=== PATIENT | female | born 1960 | race American Indian/Alaskan Native ===

== ENCOUNTER 2017-01-10 09:31 | Day surgery (SDC) | payer MEDICAID ==
[2017-01-08 07:47] VITALS: BMI 45.7
[2017-01-10 10:10] LABS: ADD MANUAL DIFF? NO
[2017-01-10 10:15] VITALS: RESP 20
[2017-01-10 10:17] LABS: BASO # 0.02 K/mm3 (0.0-2.0); BASO % 0.2 % (0.0-3.0); EOS # 0.2 (0.0-0.7); EOS % 1.8 % (1.5-5.0); GRAN # 5.91 (1.4-6.5); GRAN % 60.7 % (50.0-68.0); HEMATOCRIT 40.2 % (36.0-48.0); LYMPH # 3.2 (1.2-3.4); LYMPH % 32.7 % (22.0-35.0); MEAN CELL VOLUME 80.9 fL (80.0-105.0); MEAN CORPUSCULAR HEMOGLOBIN 25.6 pg (25.0-35.0); MEAN CORPUSCULAR HGB CONC 31.6 g/dl (31.0-37.0); MEAN PLATELET VOLUME 10.9 fl (7.0-11.0); MONO # 0.5 (0.1-0.6); MONO % 4.6 % (1.0-6.0); PLATELET COUNT 326 10^3/uL (120.0-450.0); RED CELL DISTRIBUTION WIDTH 14.2 % (11.5-14.5); WHITE BLOOD COUNT 9.8 10^3/ul (4.5-11.0)
[2017-01-10] MEDS ORDERED: Lidocaine 2% Inj (20ml) ONE (10:19)
[2017-01-10 10:21] LABS: BLOOD UREA NITROGEN 14 mg/dL (7-21); CARBON DIOXIDE 30 mmol/L (21-33); CHLORIDE 98 mmol/L (98-107); CHOLESTEROL 149 mg/dL (130-200); GFR AFRICAN-AMERICAN > 60; GLUCOSE,RANDOM 213 mg/dL (70-110); POTASSIUM 3.8 mmol/L (3.6-5.0); SODIUM 138 mmol/L (132-148)
[2017-01-10 10:23] LABS: INR 1.01 (0.93-1.08); PARTIAL THROMBOPLASTIN TIME 31.9 Seconds (23.7-30.8)
[2017-01-10] MEDS ORDERED: Midazolam 2 MG/2 ML VIAL ONE (10:27)
[2017-01-10] MEDS ORDERED: Iohexol 350 MG/100 ML VIAL ONE (10:58)
[2017-01-10 11:46] VITALS: TEMP 97.6
[2017-01-10 12:31] VITALS: O2SAT 98
[2017-01-10] MEDS ORDERED: Sodium Chloride 0.45% 1,000 ML IV SCH (12:45)
[2017-01-10 13:28] VITALS: BP 130/87; PULSE 76
--- NOTE | 2017-01-14 13:58 | CARD ---
APPROVED REPORT Procedure(s) performed: Left Heart Catheterization Complete Heart Catheterization Left Ventriculogram HISTORY 56%. (EF Method: RADIONUCLIDE), peripheral vascular disease, diabetes mellitus with insulin treatment , chronic lung disease, tobacco history() : The patient is a former smoker , hypertension , dyslipidemia . INDICATION The indication(s) include : positive stress test, stable angina (Silent [place](no time period)), chest pain, dyspnea. CASE TECHNIQUE The patient was brought electively to the Cardiac Catheterization Laboratory in a fasting state and was prepped and draped in a sterile manner. The was infiltrated with 2% Lidocaine subcutaneous without difficulty. Coronary angiography was performed using coronary diagnostic catheters. The left coronary system was accessed and visualized with a Diagnostic catheter. The right coronary system was accessed and visualized with a Diagnostic catheter. The left ventricle was accessed and visualized with a Diagnostic catheter. Left ventricular/Aortic Valve gradient assessed on pullback. Left ventriculogram was performed in DICKERSON projection. Closure device was deployed with a 6 Fr Angio-Seal without any complications. Vessel Analysis The patient's coronary anatomy is right dominant. The left main coronary artery is a medium size vessel with intimal irregularities. The left anterior descending artery is a medium size vessel with intimal irregularities. There was initial spasm which responded to nitro. The circumflex artery is a medium size vessel with intimal irregularities. The right coronary artery is a medium size vessel . There is a 50% stenosis in the distal segment. Left Ventricle The left ventricle is normal in size with normal contractility. The left ventricular ejection fraction is estimated to be 60%. Conclusion Non critical CAD. Normal left ventricular function. Spasm of lad which responded to nitro. Recommendations Aggressive Medical Therapy Weight Loss Reduction ProgramMedical Therapy
== END 2017-01-10 15:15 | disposition home or self-care (01) ==
LOC: CATH 09:31
PROVIDERS: ATTEND Internal Medicine Cardiovascular Disease
DX: I25.119 Atherosclerotic heart disease of native coronary artery with unspecified angina pectoris (principal); R94.39 Abnormal result of other cardiovascular function study; R06.00 Dyspnea, unspecified; I73.9 Peripheral vascular disease, unspecified; E11.9 Type 2 diabetes mellitus without complications; J44.9 Chronic obstructive pulmonary disease, unspecified; E78.5 Hyperlipidemia, unspecified; I25.2 Old myocardial infarction; Z87.891 Personal history of nicotine dependence; Z79.4 Long term (current) use of insulin
CPT/HCPCS: 36415; 80048; 80061; 85025; 85610; 85730; 86850; 86900; 93458; 99152; C1713; C1760; C1769; C1887 ×2; J1644; J2250; J3010; J7030; J7040; Q9967 ×2